=== PATIENT | female | born 1995 | race African-American/Black ===

== ENCOUNTER 2017-12-25 18:48 | Emergency (ER) | payer SELFPAY | END 2017-12-25 22:05 | disposition left against medical advice (07) | LOC: ERS 18:48 | DX: Z53.21 Procedure and treatment not carried out due to patient leaving prior to being seen by health care provider (principal) ==

== ENCOUNTER 2019-07-15 16:22 | Emergency (ER) | payer SELFPAY ==
[2019-07-15] MEDS ORDERED: Ketorolac Tromethamine 30 MG/ML VIAL ONE (16:33)
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
== END 2019-07-15 17:50 | disposition home or self-care (01) ==
LOC: ERS 16:22
DX: M25.531 Pain in right wrist (principal); F17.210 Nicotine dependence, cigarettes, uncomplicated
CPT/HCPCS: 96372; J1885

== ENCOUNTER 2022-05-28 05:19 | Emergency (ER) | payer SELFPAY ==
[2022-05-28] MEDS ORDERED: Ibuprofen 200 MG TAB ONE (05:57)
== END 2022-05-28 06:17 | disposition home or self-care (01) ==
LOC: ERS 05:19
DX: M25.512 Pain in left shoulder (principal); F17.210 Nicotine dependence, cigarettes, uncomplicated; Z20.822 Contact with and (suspected) exposure to COVID-19
CPT/HCPCS: 93005; 99283; U0003; U0005

== ENCOUNTER 2022-06-15 13:50 | Emergency (ER) | payer OTHER, SELFPAY | END 2022-06-15 16:55 | disposition home or self-care (01) | LOC: ERS 13:50 | DX: J06.9 Acute upper respiratory infection, unspecified (principal); F17.210 Nicotine dependence, cigarettes, uncomplicated; Z20.822 Contact with and (suspected) exposure to COVID-19 | CPT/HCPCS: 99283; U0003; U0005 ==

== ENCOUNTER 2022-07-27 13:35 | Emergency (ER) | payer OTHER ==
[2022-07-27] MEDS ORDERED: Acetaminophen 500 MG TAB ONE (13:55)
== END 2022-07-27 14:30 | disposition home or self-care (01) ==
LOC: ERS 13:35
DX: M25.512 Pain in left shoulder (principal); F17.210 Nicotine dependence, cigarettes, uncomplicated
CPT/HCPCS: 71045; 93005

== ENCOUNTER 2022-10-15 05:03 | Emergency (ER) | payer OTHER | END 2022-10-15 08:18 | disposition left against medical advice (07) | LOC: ERS 05:03 | DX: Z53.21 Procedure and treatment not carried out due to patient leaving prior to being seen by health care provider (principal) | CPT/HCPCS: 93005 ==

== ENCOUNTER 2023-03-20 07:51 | Emergency (ER) | payer OTHER | END 2023-03-20 09:33 | disposition home or self-care (01) | LOC: ERS 07:51 | DX: R20.2 Paresthesia of skin (principal); F17.210 Nicotine dependence, cigarettes, uncomplicated | CPT/HCPCS: 99284 ==

== ENCOUNTER 2025-09-13 10:28 | Emergency (ER) | payer OTHER ==
[2025-09-13] MEDS ORDERED: Dexamethasone 10 MG/ML VIAL ONE (11:02)
[2025-09-13] MEDS ORDERED: Ketorolac Tromethamine 30 MG (1 mL) VIAL ONE (11:03)
== END 2025-09-13 11:27 | disposition home or self-care (01) ==
LOC: ERS 10:28
DX: G56.01 Carpal tunnel syndrome, right upper limb (principal); X50.9XXA Other and unspecified overexertion or strenuous movements or postures, initial encounter; Y99.0 Civilian activity done for income or pay
CPT/HCPCS: 96372; 99283; J1100; J1885